=== PATIENT | male | born 1975 | race African-American/Black ===

== ENCOUNTER → 2018-11-23 | Outpatient (CLI) | payer OTHER ==
[~2018-11-23] VITALS: Wt 93.2 kg
[~2018-11-23] MED LIST: FLONASE ALLERG9.9 ML NS
[2018-11-23 14:28] LABS: HEMATOCRIT 41.4 % (42.0-52.0); HEMOGLOBIN 13.9 g/dL (13.5-18.0)
[2018-11-23 15:05] VITALS: BP 163/80
[2018-11-23 16:30] VITALS: BP 128/60
== END | disposition still patient (30) ==
LOC: LAB 14:12 → AMSURD 14:12
DX: Z01.818 Encounter for other preprocedural examination (principal)
CPT/HCPCS: J7040